=== PATIENT | male | born 1950 | race Caucasian/White ===

== ENCOUNTER → 2019-05-08 | Outpatient (CLI) | payer MEDICARE ==
--- NOTE | 2019-05-09 16:41 | MR ---
EXAMINATION TYPE: MR abdomen wo con DATE OF EXAM: 05/08/2019 COMPARISON: HISTORY: other intra-abdominal and pelvic swelling, Abn LSPine MRI suggested adrenal study Standard multiplanar, multisequence MRI departmental protocol Multiplanar, multisequence images of the abdomen were acquired. FINDINGS: Liver and spleen appear normal. Bile ducts are not dilated. There is normal size gallbladde r. Pancreas has normal size and contour. Pancreatic duct is not dilated. There is no sign of pleural effusion. There is no ascites. Stomach appears normal. There is no sign of retroperitoneal adenopathy . Kidneys have normal size and contour. There is no hydronephrosis. There is no evidence of an adrenal mass. There is large left adrenal gland without a discrete mass seen. The out of phase images show de creased signal in the left adrenal gland suggestive of significant fat component. This suggests benig n etiology. IMPRESSION: Negative MR scan of the abdomen. No suspicious adrenal mass seen. Bulky left adrenal gland could rela te to a myelolipoma.
== END | disposition home or self-care (01) ==
LOC: RADMRIMAIN 18:29
PROVIDERS: ATTEND Internal Medicine
DX: R19.09 Other intra-abdominal and pelvic swelling, mass and lump (principal)
CPT/HCPCS: 74181

== ENCOUNTER 2019-12-27 16:49 | Observation (INO) | payer MEDICARE ==
[2019-12-27] MEDS ORDERED: METOCLOPRAMIDE 5 MG/ML 2 ML VIAL IVP STA ×2 (17:13→19:01)
[2019-12-27] MEDS ORDERED: diphenhydrAMINE 50 MG/ML 1 ML VIAL IVP STA (17:13)
[2019-12-27 17:19] LABS: Basophils # (A) 0.1 k/uL (0-0.2); Basophils % (A) 0 %; Eosinophils # (A) 0.2 k/uL (0-0.7); Eosinophils % (A) 1 %; HCT 46.4 % (39.0-53.0); Lymphocytes # (A) 2.7 k/uL (1.0-4.8); Lymphocytes % (A) 18 %; MCH 29.8 pg (25.0-35.0); MCHC 32.3 g/dL (31.0-37.0); MCV 92.4 fL (80.0-100.0); Mean Platelet Volume 8.4; Monocytes # (A) 0.6 k/uL (0-1.0); Monocytes % (A) 4 %; Neutrophils # (A) 11.1 k/uL (1.3-7.7); Neutrophils % (A) 75 %; Platelet Count 203 k/uL (150-450); RBC 5.02 m/uL (4.30-5.90); RDW 13.4 % (11.5-15.5); WBC 14.8 k/uL (3.8-10.6)
--- NOTE | 2019-12-27 17:23 | ED ---
General Adult HPI - General Chief complaint: Chest Pain Stated complaint: Chest Pain Source: patient, family, EMS Mode of arrival: EMS Limitations: no limitations - History of Present Illness Initial comments: The patient is a 69-year-old male past medical history of coronary artery disease, asthma, COPD, diabetes who presents emergency department with reported epigastric abdominal pain, nausea and vomiting. The patient was working in the backyard making a [employer] when he states that he had some nausea and vomiting. Denies hematemesis. He then had sudden onset of left upper quadrant abdominal pain and epigastric pain. Patient became extremely diaphoretic. EMS was christiano led. They did give him 2 nitro and some Zofran. They're concerned about his EKG because it did show some J point elevation. Yesika Mahoney at bedside and states that the patient has had issues previously with chronic abdominal pain. He has stents in his heart which were placed by Dr. Allen. States he saw him last month and was doing well from a cardiac standpoint. He denies any fevers or chills. No ripping or tearing sensation to his back. Denies syncope. No numbness, tingling or weakness into his legs. There are no other alleviating, precipitating or modifying factors - Related Data Home Medications Medication Instructions Recorded Confirmed Aspirin EC [Ecotrin] 81 mg PO HS 06/07/14 04/03/16 Escitalopram [Lexapro] 10 mg PO BID 06/07/14 04/03/16 Ibuprofen [Motrin] 800 mg PO Q8HR PRN 06/07/14 04/03/16 Omeprazole [PriLOSEC] 20 mg PO BID 06/07/14 04/03/16 Rosuvastatin Calcium [Crestor] 40 mg PO HS 06/07/14 04/03/16 Temazepam [Restoril] 15 mg PO HS 06/07/14 04/03/16 metFORMIN HCL 1,000 mg PO BID 06/07/14 04/03/16 Albuterol Sulfate [Proair Hfa] 1 - 2 puff INHALATION DIRECTED 04/02/16 04/03/16 PRN Lisinopril [Zestril] 10 mg PO HS 04/02/16 04/03/16 Allergies Allergy/AdvReac Type Severity Reaction Status Date / Time Penicillins Allergy Unknown Unknown Verified 12/27/19 16:58 Childhood Review of Systems ROS Statement: Those systems with pertinent positive or pertinent negative responses have been documented in the HPI. ROS Other: All systems not noted in ROS Statement are negative. Past Medical History Past Medical History: Asthma, Coronary Artery Disease (CAD), COPD, Diabetes Mellitus, GERD/Reflux, Hyperlipidemia, Hypertension, Osteoarthritis (OA) Additional Past Medical History / Comment(s): hiatal hernia, History of Any Multi-Drug Resistant Organisms: None Reported Past Surgical History: Bowel Resection, Heart Catheterization With Stent, Orthopedic Surgery Additional Past Surgical History / Comment(s): COLON RESECTION FOR FLAT POLYPS. 2 cardiac stents, cysts removed from left arm and chest, arthroscopy left knee Past Anesthesia/Blood Transfusion Reactions: No Reported Reaction Date of Last Stent Placement:: 2003 Past Psychological History: No Psychological Hx Reported Smoking Status: Former smoker Past Alcohol Use History: None Reported Past Drug Use History: Marijuana - Past Family History Father Family Medical History: Cancer General Exam Limitations: no limitations Course Vital Signs 12/27/19 12/27/19 12/27/19 17:11 17:13 17:49 Temperature 98.1 F Pulse Rate 78 74 77 Respiratory 18 18 18 Rate Blood Pressure 130/80 130/90 134/86 O2 Sat by Pulse 100 100 100 Oximetry EKG Findings - EKG Comments: EKG Findings:: EKG demonstrates normal sinus rhythm with a ventricular rate of 81. FL interval 136. QRS 76. QTC of 476. Patient has J-point elevation in leads 1, 2, 3, aVF as well as V2 through V6. No reciprocal changes. Repeat EKG performed at 1907 demonstrates normal sinus rhythm with a ventricular rate of 85. FL interval 136. QRS 78. QTC of 497. No acute ST segment elevations or depressions concerning for ischemic changes Medical Decision Making - Medical Decision Making Patient arrives and is diaphoretic. He is placed on continuous pulse ox and cardiac monitoring. He denies chest pain to me. 12-lead EKG was performed. His admit to some back pain which is positional. Patient continues to feel nauseated and therefore he is given 10 mg of Reglan and 25 mg of Benadryl. I wrote her a studies were conducted. White blood cell count is 14.8. D-dimer 0.84. I did reevaluate the patient. He is now complaining of back spasms and therefore is requesting a muscle relaxer. I did give him 5 mg of Valium. Patient sent over for a CT of his chest and and pelvis which demonstrates no acute findings. I did repeat an EKG which continues to demonstrate the same J- point elevation. I did discuss diagnosis, differential and treatment options. I do recommend hospital admission in order to trend the patient's troponins. Treat his pain and nausea. I called and discussed case with Dr. Barreto who agreed to admit the patient. Patient remained in stable condition awaiting a bed on the floor - Lab Data Result diagrams: 12/27/19 17:00 12/27/19 17:09 Lab Results 12/27/19 12/27/19 12/27/19 Range/Units 17:00 17:09 17:09 WBC 14.8 H (3.8-10.6) k/uL RBC 5.02 (4.30-5.90) m/uL Hgb 15.0 (13.0-17.5) gm/dL Hct 46.4 (39.0-53.0) % MCV 92.4 (80.0-100.0) fL MCH 29.8 (25.0-35.0) pg MCHC 32.3 (31.0-37.0) g/dL RDW 13.4 (11.5-15.5) % Plt Count 203 (150-450) k/uL Neutrophils % 75 % Lymphocytes % 18 % Monocytes % 4 % Eosinophils % 1 % Basophils % 0 % Neutrophils # 11.1 H (1.3-7.7) k/uL Lymphocytes # 2.7 (1.0-4.8) k/uL Monocytes # 0.6 (0-1.0) k/uL Eosinophils # 0.2 (0-0.7) k/uL Basophils # 0.1 (0-0.2) k/uL PT 10.2 (9.0-12.0) sec INR 1.0 (<1.2) APTT 20.0 L (22.0-30.0) sec D-Dimer 0.84 H (<0.60) mg/L FEU Sodium 142 (137-145) mmol/L Potassium 3.9 (3.5-5.1) mmol/L Chloride 109 H (98-107) mmol/L Carbon Dioxide 15 L (22-30) mmol/L Anion Gap 18 mmol/L BUN 18 (9-20) mg/dL Creatinine 0.97 (0.66-1.25) mg/dL Est GFR (CKD-EPI)AfAm >90 (>60 ml/min/1.73 sqM) Est GFR (CKD-EPI)NonAf 80 (>60 ml/min/1.73 sqM) Glucose 196 H (74-99) mg/dL Calcium 10.5 H (8.4-10.2) mg/dL Magnesium 2.0 (1.6-2.3) mg/dL Total Bilirubin 0.6 (0.2-1.3) mg/dL AST 36 (17-59) U/L ALT 30 (4-49) U/L Alkaline Phosphatase 79 (38-126) U/L Troponin I (0.000-0.034) ng/mL NT-Pro-B Natriuret Pep pg/mL Total Protein 6.5 (6.3-8.2) g/dL Albumin 4.4 (3.5-5.0) g/dL 12/27/19 12/27/19 Range/Units 17:09 17:09 WBC (3.8-10.6) k/uL RBC (4.30-5.90) m/uL Hgb (13.0-17.5) gm/dL Hct (39.0-53.0) % MCV (80.0-100.0) fL MCH (25.0-35.0) pg MCHC (31.0-37.0) g/dL RDW (11.5-15.5) % Plt Count (150-450) k/uL Neutrophils % % Lymphocytes % % Monocytes % % Eosinophils % % Basophils % % Neutrophils # (1.3-7.7) k/uL Lymphocytes # (1.0-4.8) k/uL Monocytes # (0-1.0) k/uL Eosinophils # (0-0.7) k/uL Basophils # (0-0.2) k/uL PT (9.0-12.0) sec INR (<1.2) APTT (22.0-30.0) sec D-Dimer (<0.60) mg/L FEU Sodium (137-145) mmol/L Potassium (3.5-5.1) mmol/L Chloride (98-107) mmol/L Carbon Dioxide (22-30) mmol/L Anion Gap mmol/L BUN (9-20) mg/dL Creatinine (0.66-1.25) mg/dL Est GFR (CKD-EPI)AfAm (>60 ml/min/1.73 sqM) Est GFR (CKD-EPI)NonAf (>60 ml/min/1.73 sqM) Glucose (74-99) mg/dL Calcium (8.4-10.2) mg/dL Magnesium (1.6-2.3) mg/dL Total Bilirubin (0.2-1.3) mg/dL AST (17-59) U/L ALT (4-49) U/L Alkaline Phosphatase (38-126) U/L Troponin I <0.012 (0.000-0.034) ng/mL NT-Pro-B Natriuret Pep 63 pg/mL Total Protein (6.3-8.2) g/dL Albumin (3.5-5.0) g/dL Disposition Clinical Impression: Epigastric pain, Nausea & vomiting Disposition: ADMITTED IP TO THIS [facility] Condition: Stable Is patient prescribed a controlled substance at d/c from ED?: No Decision to Admit Reason: Admit from EC Decision Date: 12/27/19 Decision Time: 19:06
[2019-12-27 17:29] LABS: ALT 30 U/L (4-49); AST 36 U/L (17-59); African American GFR (CKD) >90 (>60 ml/min/1.73 sqM); Albumin 4.4 g/dL (3.5-5.0); Alkaline Phosphatase 79 U/L (38-126); Anion Gap 18 mmol/L; Blood Urea Nitrogen 18 mg/dL (9-20); Calcium 10.5 mg/dL (8.4-10.2); Carbon Dioxide 15 mmol/L (22-30); Chloride 109 mmol/L (98-107); Glucose 196 mg/dL (74-99); Non-African American GFR(CKD) 80 (>60 ml/min/1.73 sqM); Potassium 3.9 mmol/L (3.5-5.1); Sodium 142 mmol/L (137-145); Total Bilirubin 0.6 mg/dL (0.2-1.3); Total Protein 6.5 g/dL (6.3-8.2)
[2019-12-27] MEDS ORDERED: DIAZEPAM 5 MG/ML 2 ML INJ IVP STA (17:37)
[2019-12-27 17:42] LABS: Prothrombin Time 10.2 sec (9.0-12.0)
--- NOTE | 2019-12-27 17:42 | XR ---
EXAMINATION TYPE: XR chest 2V DATE OF EXAM: 12/27/2019 COMPARISON: NONE HISTORY: Short of breath TECHNIQUE: 3 views FINDINGS: Heart and mediastinum are normal. Lungs are clear of infiltrate. There is no pleural effusi on. There are no hilar masses. Bony thorax is intact. IMPRESSION: No active cardiopulmonary disease. Normal heart.
[2019-12-27 17:54] LABS: D-Dimer 0.84 mg/L FEU (<0.60)
--- NOTE | 2019-12-27 18:44 | CT ---
EXAMINATION TYPE: CT abdomen pelvis w con DATE OF EXAM: 12/27/2019 COMPARISON: None HISTORY: nausea, vomiting, LUQ pain CT DLP: 815 mGycm Automated exposure control for dose reduction was used. CONTRAST: Performed with IV Contrast, patient injected with 100 mL of Isovue 370. Multiple axial sections were obtained from the diaphragm to the floor the pelvis with IV contrast. Lung bases are clear. There is no pleural effusion. Heart size is normal. Liver spleen stomach pancre as gallbladder appear normal. Bile ducts are not dilated. There are small calcified splenic granuloma ta. There is no adrenal mass. Kidneys show satisfactory contrast opacification. There is no hydronephrosi s. Ureters are not dilated. There is normal excretion on the delayed images. There is no retroperiton eal adenopathy. Bladder distends smoothly. There is no inguinal hernia. There is no free fluid in the pelvis. There is no mesenteric edema. There is no ascites or free air. There are surgical clips at the hepatic flexure of the colon. There is apparent right hemicolectomy. There is no sign of bowel obstruction. Lumbar vertebra have normal alignment. I see no focal bone destruction. There is posterior disc herni ation at L4-5 with some impingement on the spinal canal. The bony pelvis appears intact. IMPRESSION: Previous colon surgery. No sign of acute abdomen and pelvis.
--- NOTE | 2019-12-27 18:47 | CT ---
EXAMINATION TYPE: CT chest angio for PE DATE OF EXAM: 12/27/2019 COMPARISON: None HISTORY: chest pain, elevated d-dimer, SOB CT DLP: 320.2 mGycm Automated exposure control for dose reduction was used. CONTRAST: Performed with IV Contrast, patient injected with 100 mL of Isovue 370. Multiple axial sections were obtained from the thoracic inlet to the diaphragm with IV contrast. Ther e are 3-D post processed images. There is patchy bullous pulmonary emphysema. There is no mediastinal adenopathy. There are no hilar m asses. There is 4.2 cm aneurysm of the ascending aorta. There is no dissection. There are no hilar ma sses. Heart size is normal. There is very small pericardial effusion. The lungs are clear of infiltrate. There is no evidence of a pulmonary mass. There is normal contrast opacification of the pulmonary arteries. There are no filling defects. There is 10% depression of the superior endplate of T12 vertebra that is probably old. IMPRESSION: No evidence of pulmonary embolism. Pulmonary emphysema. Thoracic aortic mild aneurysm. T12 mild compression fracture probably old.
[2019-12-27] MEDS ORDERED: HYDROmorphone 1 MG/ML 1 ML SYRINGE IVP STA (19:01)
[2019-12-27] MEDS ORDERED: NALOXONE 0.4 MG/ML 1 ML VIAL IV PRN ×2 (19:06→19:11)
[2019-12-27] MEDS ORDERED: ONDANSETRON 4 MG/2 ML VIAL IVP PRN (19:11)
[2019-12-27] MEDS ORDERED: HYDROmorphone 1 MG/ML 1 ML SYRINGE IVP PRN (19:11)
[2019-12-27 21:16] LABS: Glucose,Whole Blood 178 mg/dL (75-99)
[2019-12-28] MEDS ORDERED: IBUPROFEN 800 MG TAB PO PRN (00:19)
[2019-12-28] MEDS ORDERED: ALBUTEROL NEBULIZED 2.5 MG/3 ML INHALATION PRN (00:19)
[2019-12-28] MEDS ORDERED: ASPIRIN 81 MG PO SCH (00:30)
[2019-12-28] MEDS ORDERED: LISINOPRIL 10 MG TAB PO SCH (00:30)
[2019-12-28] MEDS ORDERED: ATORVASTATIN 40 MG TAB PO SCH (00:30)
[2019-12-28] MEDS: ESCITALOPRAM 20 MG TAB PO SCH ×2 (01:19→08:11)
[2019-12-28 06:28] LABS: Glucose,Whole Blood 108 mg/dL (75-99)
[2019-12-28 06:39] LABS: Basophils % (A) 0 %; Eosinophils # (A) 0.1 k/uL (0-0.7); Eosinophils % (A) 1 %; HCT 42.6 % (39.0-53.0); HGB 14.2 gm/dL (13.0-17.5); Lymphocytes # (A) 1.8 k/uL (1.0-4.8); Lymphocytes % (A) 12 %; MCH 31.4 pg (25.0-35.0); MCHC 33.3 g/dL (31.0-37.0); MCV 94.1 fL (80.0-100.0); Mean Platelet Volume 8.6; Monocytes # (A) 0.8 k/uL (0-1.0); Monocytes % (A) 5 %; Neutrophils # (A) 11.6 k/uL (1.3-7.7); Neutrophils % (A) 81 %; Platelet Count 197 k/uL (150-450); RBC 4.53 m/uL (4.30-5.90); RDW 13.5 % (11.5-15.5); WBC 14.4 k/uL (3.8-10.6)
[2019-12-28 06:51] LABS: African American GFR (CKD) >90 (>60 ml/min/1.73 sqM); Anion Gap 4 mmol/L; Blood Urea Nitrogen 19 mg/dL (9-20); Carbon Dioxide 24 mmol/L (22-30); Chloride 108 mmol/L (98-107); Glucose 108 mg/dL (74-99); Non-African American GFR(CKD) >90 (>60 ml/min/1.73 sqM); Potassium 4.2 mmol/L (3.5-5.1); Sodium 136 mmol/L (137-145)
[2019-12-28] MEDS: INSULIN ASPART (NovoLOG) 100 UNIT/ML VIAL SQ SCH ×3 (08:05→18:14)
[2019-12-28] MEDS ORDERED: CHOLECALCIFEROL 1,000 UNIT TAB PO SCH (09:00)
[2019-12-28] MEDS ORDERED: MULTIVITAMINS, THERA 1 EACH TAB PO SCH (09:00)
[2019-12-28] MEDS ORDERED: PANTOPRAZOLE 40 MG TABLET PO STA (14:12)
[2019-12-28] MEDS ORDERED: SODIUM CHLORIDE 0.9% 1,000 ML IV SCH (14:15)
--- NOTE | 2019-12-28 15:19 | CONS ---
CONSULTATION Mr. Chen is a 69-year-old male who is followed by Dr. Allen for his cardiac care, who presented with nausea and vomiting and abdominal discomfort. He was working outdoor for a long time, has been receiving quite a bit of pop and became nauseated and vomited with abdominal discomfort, epigastric in location, came into the emergency room. At the time of my evaluation, he is feeling quite well. He is reasonably active physically. He has mild dyspnea, chronic mild dyspnea on exertion. He has history of chronic obstructive heart disease. He has no chest discomfort. No palpitation. No dizziness. No syncope. No PND, orthopnea, or peripheral edema. He has underwent a stenting in 2003 with receiving 2 stent were but no evidence of myocardial infarction. According to him, had underwent repeat cardiac catheterization afterward that was unremarkable and has underwent a stress test in June of this year before preop evaluation that was unremarkable. He was seen by his osteopathic physician in November and once stable. 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 His coronary risk factors are remarkable for hypertension hyperlipidemia and diabetes. He stopped smoking many years ago. He has. MEDICATION: At home include albuterol, vitamin D, Crestor 40 mg daily, metformin 500 mg daily, lisinopril 10 mg daily, Lexapro and aspirin. REVIEW OF SYSTEMS: RESPIRATORY SYSTEM: He has history of asthma and COPD. No recent cough or fever. GI SYSTEM: He had nausea and vomiting. No GI bleeding. SYSTEM: No dysuria or hematuria. NERVOUS SYSTEM: No stroke or seizure. PHYSICAL EXAMINATION: He is a 69-year-old male, alert, in no apparent distress. Blood pressure running in the 110s with a heart rate in the 70s. HEAD: Normocephalic. EYES: Sclerae nonicteric. NECK: Good upstroke, no venous distention. LUNGS: Clear to auscultation. HEART: Regular rate and rhythm. S1, S2. No S3. No S4. No murmur or rub. ABDOMEN: Soft, nontender, positive bowel sounds. No organomegaly. EXTREMITIES: No edema, intact pulses. LAB DATA: Revealed BUN and creatinine 19 and 0.77, potassium 4.2, hemoglobin of 14.2, white blood cell 14.4, troponin less than 0.012 and NT proBNP of 63. EKG revealed a sinus mechanism, normal axis and intervals with early repolarization changes. Chest CT angiogram showed no evidence of pulmonary embolism with mild aneurysmal dilatation of the ascending aorta measuring at 4.2 cm. Chest x-ray shows no acute infiltrate. IMPRESSION: 1. Nausea, vomiting and abdominal discomfort, probable gastritis. No evidence of acute abdomen. 2. History of coronary artery disease, stable. No evidence for acute coronary syndrome. 3. History of hypertension. 4. Hyperlipidemia. 5. Diabetes mellitus. 6. Remote history of smoking. RECOMMENDATION: From the cardiac standpoint, I will obtain echocardiogram. The patient should be able to be discharged home and follow up as an outpatient with his primary osteopathic physician. Thank you for this consult. DAVI / AARONN: [id number] /
[2019-12-28 16:31] VITALS: BP 116/65; PULSE 63; RESP 18; TEMP 98.5
--- NOTE | 2019-12-28 16:33 | P.HPIM ---
History of Present Illness H&P Date: 12/28/19 Chief Complaint: Nausea vomiting History of presenting complaint: This is a very pleasant 69-year-old patient of Gladis Wong. Chronic stable medical conditions include asthma, coronary artery disease, COPD, diabetes, hyperlipidemia, hypertension, osteoarthritis, chlamydia pulmonary hypertension. Patient's had a prior stent. Patient is quite troubled by his reflux symptoms. Yesterday after breakfast he was working outside in the yard for several hours. Patient did drink several diet Cokes. He developed burning sensation in the epigastric lower chest area. Also developed nausea vomiting. There is no precordial pain. Patient was diaphoretic. Temperature outside was close to 90. He does follow with a ship harbor pilot from outside the area. No dizziness no lightheadedness, did feel tired. Review of systems: GEN.: Tired EYES: None HEENT: None NECK: None RESPIRATORY: None CARDIOVASCULAR: As above GASTROINTESTINAL: As above GENITOURINARY: None MUSCULOSKELETAL: None LYMPHATICS: None HEMATOLOGICAL: None PSYCHIATRY: None NEUROLOGICAL: None Past medical history to include: COPD, coronary artery disease with stent, diabetes, GERD, hypertension, hyperlipidemia, osteoarthritis, hiatal hernia, pulmonary hypertension Social history: Smoked for over 30 years about a pack a day stopped in 1996. . 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 Physical examination: VITAL SIGNS: 98.4, 79, 16, 105/64, 97% on room air GENERAL: BMI 25.7, laying in bed slightly tired. EYES: Pupils equal. Conjunctiva normal. HEENT: External appearance of nose and ears normal, oral cavity grossly normal. NECK: JVD not raised; masses not palpable. HEART: First and second heart sounds are normal; no edema. LUNGS:[ Respiratory rate normal; slightly decreased breath sounds. ABDOMEN: Soft, nontender, liver spleen not palpable, no masses palpable. PSYCH: Alert and oriented x3; mood and affect normal. NEUROLOGICAL: Cranial nerves grossly intact; no facial asymmetry, power and sensation grossly intact. LYMPHATICS: No lymph nodes palpable in the axilla and neck INVESTIGATIONS, reviewed in the clinical context: White count 14.4 hemoglobin 14.2 platelets 197 potassium 4.2 creatinine 0.77 Troponin I 3 negative EKG tracing personally reviewed by me-normal sinus rhythm Computed tomography scan of the chest-emphysema, no PE. 10% T12 superior plate compression 4.2 cm aneurysm of ascending aorta. Chest x-ray film personally reviewed by me-lung sofia clear Assessment: -This is a patient is being troubled with reflux symptoms yesterday was walking out of the sun for several hours. Patient drank a lot of Diet Coke. Also was having orange juice before that. Had a burning sensation in the epigastric area. Symptoms are very atypical for cardiac. Patient is due for EGD. -Coronary artery disease per history of stent. -COPD in an ex-smoker -Diabetes mellitus type 2 -Hyperlipidemia -Essential hypertension -Primary osteoarthritis -Hiatal hernia -Secondary probably hypertension - Plan: Cardiology was consulted to rule out a cardiac cause. EKG was unremarkable. Troponins were negative. Home medications resumed. Patient be given IV fluids. Also had PPI and Tums. Patient does take Motrin that was discontinued. Care was discussed with the patient. Past Medical History Past Medical History: Asthma, Coronary Artery Disease (CAD), COPD, Diabetes Mellitus, GERD/Reflux, Hyperlipidemia, Hypertension, Osteoarthritis (OA) Additional Past Medical History / Comment(s): hiatal hernia, pulmonary HTN History of Any Multi-Drug Resistant Organisms: None Reported Past Surgical History: Bowel Resection, Heart Catheterization With Stent, Orthopedic Surgery Additional Past Surgical History / Comment(s): COLON RESECTION FOR FLAT POLYPS. 2 cardiac stents, cysts removed from left arm and chest, arthroscopy left knee Past Anesthesia/Blood Transfusion Reactions: No Reported Reaction Date of Last Stent Placement:: 2003 Past Psychological History: No Psychological Hx Reported Smoking Status: Former smoker Past Alcohol Use History: None Reported Additional Past Alcohol Use History / Comment(s): quit smoking 1996, smoked for 30 yrs-1 PPD Past Drug Use History: Marijuana - Past Family History Father Family Medical History: Cancer Medications and Allergies Home Medications Medication Instructions Recorded Confirmed Type Aspirin EC [Ecotrin Low Dose] 81 mg PO HS 06/07/14 12/27/19 History Rosuvastatin Calcium [Crestor] 40 mg PO HS 06/07/14 12/27/19 History metFORMIN HCL 500 mg PO DAILY 06/07/14 12/27/19 History Albuterol Sulfate [Proair Hfa] 1 - 2 puff INHALATION RT-Q4H PRN 04/02/16 12/28/19 History Lisinopril [Zestril] 10 mg PO HS 04/02/16 12/27/19 History Cholecalciferol [Vitamin D3 (25 1,000 unit PO DAILY 12/27/19 12/27/19 History Mcg = 1000 Iu)] Escitalopram [Lexapro] 10 mg PO BID 12/27/19 12/27/19 History Multivitamins, Thera [Multivitamin 1 tab PO DAILY 12/27/19 12/27/19 History (formulary)] Omeprazole [PriLOSEC] 20 mg PO AC-BID #60 cap 12/28/19 Rx Allergies Allergy/AdvReac Type Severity Reaction Status Date / Time Penicillins Allergy Unknown Unknown Verified 12/27/19 19:51 Childhood Physical Exam Vitals: Vital Signs Temp Pulse Pulse Resp BP BP Pulse Ox 12/28/19 08:02 98.4 F 79 16 105/64 97 12/28/19 08:00 79 16 12/28/19 03:54 77 14 12/28/19 03:51 98.3 F 77 14 115/72 99 12/28/19 00:00 97.9 F 79 16 97/73 100 12/27/19 23:00 16 12/27/19 20:11 97.4 F L 12/27/19 19:32 77 19 147/91 99 12/27/19 17:49 77 18 134/86 100 12/27/19 17:13 74 18 130/90 100 12/27/19 17:11 98.1 F 78 18 130/80 100 Intake and Output 12/27/19 12/28/19 12/28/19 22:59 06:59 14:59 Other: Voiding Method Toilet Toilet Urinal Urinal # Voids 1 Weight 76.657 kg Results CBC & Chem 7: 12/28/19 06:19 12/28/19 06:19 Labs: Abnormal Lab Results - Last 24 Hours (Table) 12/27/19 12/27/19 12/27/19 Range/Units 17:00 17:09 17:09 WBC 14.8 H (3.8-10.6) k/uL Neutrophils # 11.1 H (1.3-7.7) k/uL APTT 20.0 L (22.0-30.0) sec D-Dimer 0.84 H (<0.60) mg/L FEU Sodium (137-145) mmol/L Chloride 109 H (98-107) mmol/L Carbon Dioxide 15 L (22-30) mmol/L Glucose 196 H (74-99) mg/dL POC Glucose (mg/dL) (75-99) mg/dL Calcium 10.5 H (8.4-10.2) mg/dL 12/27/19 12/28/19 12/28/19 Range/Units 21:05 06:19 06:19 WBC 14.4 H (3.8-10.6) k/uL Neutrophils # 11.6 H (1.3-7.7) k/uL APTT (22.0-30.0) sec D-Dimer (<0.60) mg/L FEU Sodium 136 L (137-145) mmol/L Chloride 108 H (98-107) mmol/L Carbon Dioxide (22-30) mmol/L Glucose 108 H (74-99) mg/dL POC Glucose (mg/dL) 178 H (75-99) mg/dL Calcium (8.4-10.2) mg/dL 12/28/19 Range/Units 06:26 WBC (3.8-10.6) k/uL Neutrophils # (1.3-7.7) k/uL APTT (22.0-30.0) sec D-Dimer (<0.60) mg/L FEU Sodium (137-145) mmol/L Chloride (98-107) mmol/L Carbon Dioxide (22-30) mmol/L Glucose (74-99) mg/dL POC Glucose (mg/dL) 108 H (75-99) mg/dL Calcium (8.4-10.2) mg/dL Thrombosis Risk Factor Assmnt - Choose All That Apply Other Risk Factors: Yes Each Risk Factor Represents 2 Points: Age 61-74 years Other congenital or acquired thrombophilia - If yes, enter type in comment: No Thrombosis Risk Factor Assessment Total Risk Factor Score: 2 Thrombosis Risk Factor Assessment Level: Low Risk
[2019-12-28 16:42] LABS: Glucose,Whole Blood 94 mg/dL (75-99)
--- NOTE | 2019-12-29 23:07 | P.DS ---
Providers Date of admission: 12/27/19 19:09 Expected date of discharge: 12/28/19 Attending physician: Markel Barreto Consults: 12/27/19 19:08 Consult Physician Urgent Consulting Provider: [facility] Consult Reason/Comments: epigastric pain, hx ascad Do you want consulting provider notified?: Yes Primary care physician: Ewa Pritchardroy [facility] Course: Chief Complaint: Nausea vomiting History of presenting complaint: This is a very pleasant 69-year-old patient of Gladis Wong. Chronic stable medical conditions include asthma, coronary artery disease, COPD, diabetes, hyperlipidemia, hypertension, osteoarthritis, chlamydia pulmonary hypertension. Patient's had a prior stent. Patient is quite troubled by his reflux symptoms. Yesterday after breakfast he was working outside in the yard for several hours. Patient did drink several diet Cokes. He developed burning sensation in the epigastric lower chest area. Also developed nausea vomiting. There is no precordial pain. Patient was diaphoretic. Temperature outside was close to 90. He does follow with a time signal wirer from outside the area. No dizziness no lightheadedness, did feel tired. Admitted with severe reflux symptoms with nausea vomiting. Given PPI times. Doing better. Seen by Dr. Jiménez from cardiology. Cleared. Patient told to get a EGD as an outpatient.. Will be sent home on PPIs. Diet also discussed at length. Consultation: Dr. Jiménez from cardiology Physical examination: VITAL SIGNS: 98.5, 63, 18, 11 6/65, 97% room air GENERAL: BMI 25.7, laying in bed slightly tired. EYES: Pupils equal. Conjunctiva normal. HEENT: External appearance of nose and ears normal, oral cavity grossly normal. NECK: JVD not raised; masses not palpable. HEART: First and second heart sounds are normal; no edema. LUNGS:[ Respiratory rate normal; slightly decreased breath sounds. ABDOMEN: Soft, nontender, liver spleen not palpable, no masses palpable. PSYCH: Alert and oriented x3; mood and affect normal. INVESTIGATIONS, reviewed in the clinical context: White count 14.4 hemoglobin 14.2 platelets 197 potassium 4.2 creatinine 0.77 Troponin I 3 negative EKG tracing personally reviewed by in-normal sinus rhythm Computed tomography scan of the chest-emphysema, no PE. 10% T12 superior plate compression 4.2 cm aneurysm of ascending aorta. Chest x-ray film personally reviewed by me-lung sofia clear Assessment: -Symptoms from severe reflux esophagitis causing some chest pain -Coronary artery disease per history of stent. -COPD in an ex-smoker -Diabetes mellitus type 2 -Hyperlipidemia -Essential hypertension -Primary osteoarthritis -Hiatal hernia -Secondary pulmonary hypertension - Disposition: Home Patient Condition at Discharge: Stable Plan - Discharge Summary New Discharge Prescriptions: New Omeprazole [PriLOSEC] 20 mg PO AC-BID #60 cap Continue metFORMIN HCL 500 mg PO DAILY Rosuvastatin Calcium [Crestor] 40 mg PO HS Aspirin EC [Ecotrin Low Dose] 81 mg PO HS Lisinopril [Zestril] 10 mg PO HS Albuterol Sulfate [Proair Hfa] 1 - 2 puff INHALATION RT-Q4H PRN PRN Reason: Shortness Of Breath Cholecalciferol [Vitamin D3 (25 Mcg = 1000 Iu)] 1,000 unit PO DAILY Multivitamins, Thera [Multivitamin (formulary)] 1 tab PO DAILY Escitalopram [Lexapro] 10 mg PO BID Discontinued Ibuprofen [Motrin] 800 mg PO Q8HR PRN PRN Reason: Pain Discharge Medication List Aspirin EC [Ecotrin Low Dose] 81 mg PO HS 06/07/14 [History] Rosuvastatin Calcium [Crestor] 40 mg PO HS 06/07/14 [History] metFORMIN HCL 500 mg PO DAILY 06/07/14 [History] Albuterol Sulfate [Proair Hfa] 1 - 2 puff INHALATION RT-Q4H PRN 04/02/16 [History] Lisinopril [Zestril] 10 mg PO HS 04/02/16 [History] Cholecalciferol [Vitamin D3 (25 Mcg = 1000 Iu)] 1,000 unit PO DAILY 12/27/19 [History] Escitalopram [Lexapro] 10 mg PO BID 12/27/19 [History] Multivitamins, Thera [Multivitamin (formulary)] 1 tab PO DAILY 12/27/19 [History] Omeprazole [PriLOSEC] 20 mg PO AC-BID #60 cap 12/28/19 [Rx] Follow up Appointment(s)/Referral(s): Fani Mathias MD [STAFF PHYSICIAN] - 2 Weeks (egd ) Ewa Alexander MD [Primary Care Provider] - 1-2 days Activity/Diet/Wound Care/Special Instructions: please follow up with your time signal wirer within a couple weeks. Discharge Disposition: HOME SELF-CARE
--- NOTE | 2019-12-30 16:01 | ECHOF ---
Referral Reason:cad MEASUREMENTS -------- HEIGHT: 172.7 cm WEIGHT: 76.7 kg BP: 105/64 RVIDd: 3.0 cm (< 3.3) IVSd: 1.3 cm (0.6 - 1.1) LVIDd: 3.2 cm (3.9 - 5.3) LVPWd: 1.3 cm (0.6 - 1.1) IVSs: 1.8 cm LVIDs: 2.7 cm LVPWs: 1.5 cm LA Diam: 3.8 cm (2.7 - 3.8) Ao Diam: 4.1 cm (2.0 - 3.7) AV Cusp: 2.2 cm (1.5 - 2.6) MV EXCURSION: 14.013 mm (> 18.000) MV EF SLOPE: 67 mm/s (70 - 150) EPSS: 0.6 cm MV E Cedric: 0.87 m/s MV DecT: 187 ms MV A Cedric: 0.94 m/s MV E/A Ratio: 0.93 RAP: 5.00 mmHg RVSP: 19.65 mmHg FINDINGS -------- Sinus rhythm. This was a technically adequate study. The left ventricular size is normal. There is mild concentric left ventricular hypertrophy. Overa ll left ventricular systolic function is normal with, an EF between 55 - 60 %. The right ventricle is normal in size. The left atrial size is normal. The right atrial size is normal. Interatrial and interventricular septum intact. The aortic valve is trileaflet, and appears structurally normal. No aortic stenosis or regurgitation. The mitral valve is normal. There is trace to mild mitral regurgitation. The tricuspid valve appears structurally normal. Mild tricuspid regurgitation present. Right vent ricular systolic pressure is normal at < 35 mmHg. There is no pulmonic regurgitation present. The aortic root is mildy dilated. Normal inferior vena cava with normal inspiratory collapse consistent with estimated right atrial pre ssure of 5 mmHg. There is no pericardial effusion. CONCLUSIONS -------- 1. There is mild concentric left ventricular hypertrophy. 2. Overall left ventricular systolic function is normal with, an EF between 55 - 60 %. 3. The left atrial size is normal. 4. The aortic valve is trileaflet, and appears structurally normal. No aortic stenosis or regurgitati on. 5. There is trace to mild mitral regurgitation. 6. Mild tricuspid regurgitation present. 7. The aortic root is mildy dilated. 8. There is no pericardial effusion. STATE AUDITOR: Desirae Parker RDCS
== END 2019-12-28 21:09 | disposition home or self-care (01) ==
LOC: EC 16:49 → 1SOBS 19:09
PROVIDERS: ADMIT Hospitalist; ATTEND Hospitalist
DX: K21.0 Gastro-esophageal reflux disease with esophagitis (principal); I25.10 Atherosclerotic heart disease of native coronary artery without angina pectoris; R61 Generalized hyperhidrosis; M54.9 Dorsalgia, unspecified; M62.830 Muscle spasm of back; J44.9 Chronic obstructive pulmonary disease, unspecified; I10 Essential (primary) hypertension; E11.9 Type 2 diabetes mellitus without complications; G89.29 Other chronic pain; E78.5 Hyperlipidemia, unspecified; I27.29 Other secondary pulmonary hypertension; M19.91 Primary osteoarthritis, unspecified site; K44.9 Diaphragmatic hernia without obstruction or gangrene; Z98.0 Intestinal bypass and anastomosis status; Z20.828 Contact with and (suspected) exposure to other viral communicable diseases; Z95.5 Presence of coronary angioplasty implant and graft; Z87.891 Personal history of nicotine dependence; Z79.82 Long term (current) use of aspirin; Z79.899 Other long term (current) drug therapy; Z79.1 Long term (current) use of non-steroidal anti-inflammatories (NSAID); Z79.84 Long term (current) use of oral hypoglycemic drugs; Z88.0 Allergy status to penicillin; Z80.9 Family history of malignant neoplasm, unspecified
CPT/HCPCS: 93005 ×3; 96376; 96374; 96375; 99285; 36415; 93306; 85379; 83880; 80053; 80048; 83735; 84484; 85025 ×2; 85610; 85730; 71046; 71275; 74177; G0378 ×2; U0003; J1200; J2765; J3360; J1170; Q9967

== ENCOUNTER 2021-09-13 06:56 | Day surgery (SDC) | payer MEDICARE ==
[2021-09-11 11:54] VITALS: BMI 25.8
[2021-09-13 07:28] VITALS: TEMP 98.3
[2021-09-13 07:30] LABS: Glucose,Whole Blood 104 mg/dL (75-99)
[2021-09-13] MEDS: LACTATED RINGERS 1,000 ML IV SCH ×2 (07:30→07:43)
[2021-09-13] MEDS ORDERED: PROPOFOL 10 MG/ML 20 ML VIAL IV ONE (07:45)
--- NOTE | 2021-09-13 08:16 | P.PCN ---
Date of Procedure: 09/13/21 Procedure(s) Performed: BRIEF HISTORY: Patient is a 70-year-old pleasant white male scheduled for an elective colonoscopy as a part of the prior history of colon cancer diagnosed several years ago. His last colonoscopy was 5 years ago. PROCEDURE PERFORMED: Colonoscopy. PREOPERATIVE DIAGNOSIS: History of colon cancer ago several years ago status post right hemicolectomy. IV sedation per Anesthesia. PROCEDURE: After informed consent was obtained, the patient, was brought into the endoscopy unit. IV sedation was administered by Anesthesia under continuous monitoring. Digital rectal examination was normal. Initially the Olympus CF-160 flexible video colonoscope was then inserted in the rectum, gradually advanced into the right colon without any difficulty. The anastomosis was visualized and appeared normal. Mucosa of the, ascending colon, transverse colon, descending colon, sigmoid colon, and rectum appeared normal. Scattered sigmoid diverticulosis. Retroflexion was performed in the rectum and no lesions were seen. The patient tolerated the procedure well. IMPRESSION: Normal-appearing colon from rectum to right colon with normal anastomosis. Scattered sigmoid diverticulosis RECOMMENDATIONS: Findings of this examination were discussed with the patient as well as his family. He was advised to have a repeat surveillance colonoscopy in 5 years from her prior history of colon cancer..
[2021-09-13 08:35] VITALS: BP 114/76; PULSE 83; RESP 16
== END 2021-09-13 08:56 | disposition home or self-care (01) ==
LOC: ORWHC2ENDO 06:56
PROVIDERS: ATTEND Internal Medicine Gastroenterology
DX: Z12.11 Encounter for screening for malignant neoplasm of colon (principal); K57.30 Diverticulosis of large intestine without perforation or abscess without bleeding; Z85.038 Personal history of other malignant neoplasm of large intestine; Z90.49 Acquired absence of other specified parts of digestive tract; Z98.0 Intestinal bypass and anastomosis status; I25.10 Atherosclerotic heart disease of native coronary artery without angina pectoris; I10 Essential (primary) hypertension; E78.5 Hyperlipidemia, unspecified; J44.9 Chronic obstructive pulmonary disease, unspecified; I27.20 Pulmonary hypertension, unspecified; E11.9 Type 2 diabetes mellitus without complications; M19.90 Unspecified osteoarthritis, unspecified site; K21.9 Gastro-esophageal reflux disease without esophagitis; Z79.899 Other long term (current) drug therapy; Z79.84 Long term (current) use of oral hypoglycemic drugs; Z79.82 Long term (current) use of aspirin; Z97.2 Presence of dental prosthetic device (complete) (partial)
CPT/HCPCS: J2704; G0105

== ENCOUNTER → 2022-09-20 | Outpatient (CLI) | payer MEDICARE ==
[2022-09-20 14:14] VITALS: BP 123/81; PULSE 75; RESP 18; TEMP 98
--- NOTE | 2022-09-20 14:47 | P.PAINPG ---
PQRS Measure Charge Sheet Comment: A 71 yr old male with a history of severe and chronic LBP secondary to lumbar DDD and spondylosis with facet arthropathy without myelopathy presents today for LBP evaluation. Pain level is provoked at 6 /10 in intensity, constant, localized in the lumbar spine, sharp in character w shooting towards the LLE. Pain is provoked by standing, walking for periods of 10 min or more. Pain is alleviated with PT x 5 wks which is completed in Aug 2022, medications, THC products, heat, PT guided home exercise regimen, repositioning and rest. Patient is currently on Ibu Patient denies any side effects of the medication(s), denies excessive drowsiness or sleepiness, denies suicidal ideation and reports that the current pain medication is helping to control the pain and improve activities of daily living. Patient denies any motor or sensory deficits. Patient denies any fever or night sweats, denies any change in the bowel movements or urination. Physical Examination: -Constitutional: Cooperative. Not in acute distress . - Neurologic: Cranial nerve II to XII intact. No focal neurological deficits. - Psychatric: Alert & oriented x 3. Matching mood & appropriate affect. Judgment and insight intact. - Musculoskeletal: Cervical spine: Muscle bulk/ tone/ strength in the bilateral upper extremities normal Vertebral body tenderness to palpation over Spurling test positive Distraction test positive Facet loading test positive TTP Thoracic spine Muscle bulk / tone/ strength in the bilateral paraspinal muscles normal Vertebral body tender to palpation over Facet loading test positive TTP Lumbar spine: Motor bulk/ tone/ strength lower extremities , thigh and legs : 5/5 Deep tendon reflexes : Normal Knee Jerk. Normal Ankle Jerk . Vertebral body tenderness to palpation over Lumbar Facet Loading Test positive TTP over BL L4-L5, L5-S1 facets Straight Leg Raise: positive at 30 degrees right side/ left side Gaenslen's Test positive Sacral spine : Severe tenderness over the Sacroiliac joint: right side / left side Range of motion: Flexion of the lumbar spine <60 degrees Range of motion: Extension of the lumbar spine <20 degrees Gaenslen's Test positive right side / left side Alban test: positive right side / left side Thigh Thrust Test positive right side / left side Sacral Thrust Test positive right side / left side Assessment and plan: Chronic LBP secondary to lumbar DDD, spondylosis with facet arthropathy without myelopathy Recommendation of BL facet block of the medial branches L4-L5, L5-S1 #1. May need a series of injections, up until RFA, for optimal pain relief. Risks, benefits of procedure discussed and pt verbalized understanding. Admits to anticoagulant use or medical history of diabetes. Protocol for discontinuation/ continuation of medications [place] procedure discussed. All questions answered. I have spent less than 30 minutes on patient care today. Dr Fink was available by phone for the evaluation of this patient. The time was used to review the medical records including relevant urine studies and Prescription history (MAPs), review of the available imaging, evaluation and examination of the patient, coordination of care with the medical staff and if applicable referring physicians, as well as creation of the medical record PQRS Narrative: Smoking Status Former smoker Hx Alcohol Use (MH) No Home Medications: Ambulatory Orders Aspirin EC [Ecotrin Low Dose] 81 mg PO HS 06/07/14 Rosuvastatin Calcium [Crestor] 40 mg PO HS 06/07/14 metFORMIN HCL [Glucophage] 500 mg PO BID 06/07/14 Albuterol Sulfate [Proair Hfa] 1 - 2 puff INHALATION RT-Q4H PRN 04/02/16 lisinopriL [Zestril] 10 mg PO HS 04/02/16 Cholecalciferol [Vitamin D3 (25 Mcg = 1000 Iu)] 1,000 unit PO DAILY 12/27/19 Escitalopram [Lexapro] 10 mg PO BID 12/27/19 Multivitamins, Thera [Multivitamin (formulary)] 1 tab PO DAILY 12/27/19 Omeprazole [PriLOSEC] 20 mg PO AC-BID #60 cap 12/28/19 Fluticasone Propion/Salmeterol [Advair 250-50 Diskus] 1 inhalation PO BID 09/11/21 Controlled Substance Measures - Controlled Substance Measures Is patient prescribed a controlled substance at discharge?: No
== END ==
LOC: PNWHC3 13:08
PROVIDERS: ATTEND Specialist
DX: M51.36 Other intervertebral disc degeneration, lumbar region (principal); M47.816 Spondylosis without myelopathy or radiculopathy, lumbar region; G89.29 Other chronic pain; Z87.891 Personal history of nicotine dependence; Z79.82 Long term (current) use of aspirin; Z88.0 Allergy status to penicillin
CPT/HCPCS: 99211

== ENCOUNTER → 2022-11-22 | Outpatient (CLI) | payer MEDICARE ==
[2022-11-22 13:41] VITALS: BP 118/76; PULSE 63; RESP 18; TEMP 98
--- NOTE | 2022-11-22 14:27 | P.PAINPG ---
PQRS Measure Charge Sheet Comment: A 71 yr old male with a history of severe and chronic LBP secondary to lumbar DDD and spondylosis with facet arthropathy without myelopathy presents today for evaluation s/p BL MBB L3-L5 #1. Pt states he experienced 100 % pain relief x 2 wks s/p procedure. Pain level is provoked at 2 /10 in intensity, intermittent, localized in the lumbar spine, dull in character w/o shooting pain. Pain is provoked by lifting, walking/ standing for periods of 30 min or more. Pain is alleviated with injections. Interventional pain procedures completed include BL MBB L3-L5 x1 Patient denies any side effects of the medication(s), denies excessive drowsiness or sleepiness, denies suicidal ideation and reports that the current pain medication is helping to control the pain and improve activities of daily living. Patient denies any motor or sensory deficits. Patient denies any fever or night sweats, denies any change in the bowel movements or urination. Physical Examination: -Constitutional: Cooperative. Not in acute distress . - Neurologic: Cranial nerve II to XII intact. No focal neurological deficits. - Psychatric: Alert & oriented x 3. Matching mood & appropriate affect. Judgment and insight intact. - Musculoskeletal: Cervical spine: Muscle bulk/ tone/ strength in the bilateral upper extremities normal Vertebral body tenderness to palpation over Spurling test positive Distraction test positive Facet loading test positive TTP Thoracic spine Muscle bulk / tone/ strength in the bilateral paraspinal muscles normal Vertebral body tender to palpation over Facet loading test positive TTP Lumbar spine: Motor bulk/ tone/ strength lower extremities , thigh and legs : 5/5 Deep tendon reflexes : Normal Knee Jerk. Normal Ankle Jerk . Vertebral body tenderness to palpation over Aguirre Test positive Lumbar Facet Loading Test positive Straight Leg Raise: positive at 30 degrees right side/ left side Gaenslen's Test positive Sacral spine : Severe tenderness over the Sacroiliac joint: right side / left side Range of motion: Flexion of the lumbar spine <60 degrees Range of motion: Extension of the lumbar spine <20 degrees Gaenslen's Test positive right side / left side Alban test: positive right side / left side Thigh Thrust Test positive right side / left side Sacral Thrust Test positive right side / left side Assessment and plan: Chronic LBP secondary to lumbar DDD, spondylosis with facet arthropathy without myelopathy Will manage residual pain on his own and may return to clinic on an as needed basis. All questions answered. I have spent less than 30 minutes on patient care today. Dr Fink was available by phone for the evaluation of this patient. The time was used to review the medical records including relevant urine studies and Prescription history (MAPs), review of the available imaging, evaluation and examination of the patient, coordination of care with the medical staff and if applicable referring physicians, as well as creation of the medical record PQRS Narrative: Smoking Status Former smoker Hx Alcohol Use (MH) No Home Medications: Ambulatory Orders Aspirin EC [Ecotrin Low Dose] 81 mg PO HS 06/07/14 Rosuvastatin Calcium [Crestor] 40 mg PO HS 06/07/14 metFORMIN HCL [Glucophage] 500 mg PO BID 06/07/14 Albuterol Sulfate [Proair Hfa] 1 - 2 puff INHALATION RT-Q4H PRN 04/02/16 lisinopriL [Zestril] 10 mg PO HS 04/02/16 Cholecalciferol [Vitamin D3 (25 Mcg = 1000 Iu)] 1,000 unit PO DAILY 12/27/19 Escitalopram [Lexapro] 10 mg PO BID 12/27/19 Multivitamins, Thera [Multivitamin (formulary)] 1 tab PO DAILY 12/27/19 Omeprazole [PriLOSEC] 20 mg PO AC-BID #60 cap 12/28/19 Fluticasone Propion/Salmeterol [Advair 250-50 Diskus] 1 inhalation PO BID 09/11/21 Ibuprofen 600 mg PO DAILY 10/24/22 Controlled Substance Measures - Controlled Substance Measures Is patient prescribed a controlled substance at discharge?: No
== END ==
LOC: PNWHC3 12:59
PROVIDERS: ATTEND Specialist
DX: M43.16 Spondylolisthesis, lumbar region (principal); M51.36 Other intervertebral disc degeneration, lumbar region; M47.816 Spondylosis without myelopathy or radiculopathy, lumbar region; G89.29 Other chronic pain; Z88.0 Allergy status to penicillin; Z79.82 Long term (current) use of aspirin; Z87.891 Personal history of nicotine dependence
CPT/HCPCS: 99211

== ENCOUNTER → 2023-02-11 | Outpatient (CLI) | payer MEDICARE ==
[2023-02-11 14:18] VITALS: BP 104/71; PULSE 62; RESP 15; TEMP 98.2
--- NOTE | 2023-02-11 14:29 | P.PAINPG ---
PQRS Measure Charge Sheet Comment: A 72 yr old male with a history of severe and chronic LBP secondary to lumbar DDD and spondylosis with facet arthropathy without myelopathy presents today for evaluation. Pain level is provoked at 6/10 in intensity, intermittent, localized in the lumbar spine, dull in character w shooting pain to the butto cks. Pain is provoked by standing/ walking for periods of 15 min or more. Pain is relieved by PT x 6 wks which ended in Aug 2022, injections, lifting, walking/ standing for periods of 30 min or more. Oswestry axial pain score of 20. Interventional pain procedures completed include BL MBB L3-L5 x1 Patient denies any side effects of the medication(s), denies excessive drowsiness or sleepiness, denies suicidal ideation and reports that the current pain medication is helping to control the pain and improve activities of daily living. Patient denies any motor or sensory deficits. Patient denies any fever or night sweats, denies any change in the bowel movements or urination. Physical Examination: -Constitutional: Cooperative. Not in acute distress . - Neurologic: Cranial nerve II to XII intact. No focal neurological deficits. - Psychatric: Alert & oriented x 3. Matching mood & appropriate affect. Judgment and insight intact. - Musculoskeletal: Cervical spine: Muscle bulk/ tone/ strength in the bilateral upper extremities normal Vertebral body tenderness to palpation over Spurling test positive Distraction test positive Facet loading test positive TTP Thoracic spine Muscle bulk / tone/ strength in the bilateral paraspinal muscles normal Vertebral body tender to palpation over Facet loading test positive TTP Lumbar spine: Motor bulk/ tone/ strength lower extremities , thigh and legs : 5/5 Deep tendon reflexes : Normal Knee Jerk. Normal Ankle Jerk . Vertebral body tenderness to palpation over Aguirre Test positive Lumbar Facet Loading Test positive over BL L4-L5, L5-S1 Straight Leg Raise: positive at 30 degrees right side/ left side Gaenslen's Test positive Sacral spine : Severe tenderness over the Sacroiliac joint: right side / left side Range of motion: Flexion of the lumbar spine <60 degrees Range of motion: Extension of the lumbar spine <20 degrees Gaenslen's Test positive right side / left side Alban test: positive right side / left side Thigh Thrust Test positive right side / left side Sacral Thrust Test positive right side / left side Assessment and plan: Chronic LBP secondary to lumbar DDD, spondylosis with facet arthropathy without myelopathy Recommendation of BL facet block of the medial branches L4-L5, L5-S1 #2. May need a series of injections, up until RFA, for optimal pain relief. Risks, benefits of procedure discussed and pt verbalized understanding. Protocol for discontinuation/ continuation of medications surrounding procedure discussed. All questions answered. I have spent less than 30 minutes on patient care today. Dr Fink was available by phone for the evaluation of this patient. The time was used to review the medical records including relevant urine studies and Prescription history (MAPs), review of the available imaging, evaluation and examination of the patient, coordination of care with the medical staff and if applicable referring physicians, as well as creation of the medical record PQRS Narrative: Smoking Status Former smoker Hx Alcohol Use (MH) No Home Medications: Ambulatory Orders Aspirin EC [Ecotrin Low Dose] 81 mg PO HS 06/07/14 Rosuvastatin Calcium [Crestor] 40 mg PO HS 06/07/14 metFORMIN HCL [Glucophage] 500 mg PO BID 06/07/14 Albuterol Sulfate [Proair Hfa] 1 - 2 puff INHALATION RT-Q4H PRN 04/02/16 lisinopriL [Zestril] 10 mg PO HS 04/02/16 Cholecalciferol [Vitamin D3 (25 Mcg = 1000 Iu)] 1,000 unit PO DAILY 12/27/19 Escitalopram [Lexapro] 10 mg PO BID 12/27/19 Multivitamins, Thera [Multivitamin (formulary)] 1 tab PO DAILY 12/27/19 Omeprazole [PriLOSEC] 20 mg PO AC-BID #60 cap 12/28/19 Fluticasone Propion/Salmeterol [Advair 250-50 Diskus] 1 inhalation PO BID 09/11/21 Ibuprofen 600 mg PO DAILY 10/24/22 Controlled Substance Measures - Controlled Substance Measures Is patient prescribed a controlled substance at discharge?: No
== END ==
LOC: PNWHC3 13:55
PROVIDERS: ATTEND Specialist
DX: M51.37 Other intervertebral disc degeneration, lumbosacral region (principal); M47.817 Spondylosis without myelopathy or radiculopathy, lumbosacral region; G89.29 Other chronic pain; Z79.82 Long term (current) use of aspirin; Z87.891 Personal history of nicotine dependence; Z88.0 Allergy status to penicillin
CPT/HCPCS: 99211

== ENCOUNTER → 2023-04-08 | Outpatient (CLI) | payer MEDICARE ==
[2023-04-08 14:07] VITALS: BP 117/72; PULSE 76; RESP 15; TEMP 98.7
--- NOTE | 2023-04-08 14:07 | P.PAINPG ---
Objective - Vital Signs Vital signs: Intake & Output 04/07/23 04/08/23 04/08/23 18:59 06:59 18:59 Weight 74.843 kg PQRS Measure Charge Sheet Comment: A 72 yr old male with a history of severe and chronic LBP secondary to lumbar DDD and spondylosis with facet arthropathy without myelopathy presents today for evaluation s/p BL MBB L4-L5, L5-S1 #2. Pt states he experienced 80% pain relief x 12 hrs s/p procedure. Pain level is provoked at 6/10 in intensity, int ermittent, localized in the lumbar spine, dull in character w shooting pain to the buttocks. Pain is provoked by standing/ walking for periods of 15 min or more. Pain is relieved by PT x 6 wks which ended in Aug 2022, injections, lifting, walking/ standing for periods of 30 min or more. Oswestry axial pain score of 19. Interventional pain procedures completed include BL MBB L3-L5 x2 Patient denies any side effects of the medication(s), denies excessive drowsiness or sleepiness, denies suicidal ideation and reports that the current pain medication is helping to control the pain and improve activities of daily living. Patient denies any motor or sensory deficits. Patient denies any fever or night sweats, denies any change in the bowel movements or urination. Physical Examination: -Constitutional: Cooperative. Not in acute distress . - Neurologic: Cranial nerve II to XII intact. No focal neurological deficits. - Psychatric: Alert & oriented x 3. Matching mood & appropriate affect. Judg ment and insight intact. - Musculoskeletal: Cervical spine: Muscle bulk/ tone/ strength in the bilateral upper extremities normal Vertebral body tenderness to palpation over Spurling test positive Distraction test positive Facet loading test positive TTP Thoracic spine Muscle bulk / tone/ strength in the bilateral paraspinal muscles normal Vertebral body tender to palpation over Facet loading test positive TTP Lumbar spine: Motor bulk/ tone/ strength lower extremities , thigh and legs : 5/5 Deep tendon reflexes : Normal Knee Jerk. Normal Ankle Jerk . Vertebral body tenderness to palpation over Aguirre Test positive Lumbar Facet Loading Test positive over BL L4-L5, L5-S1 Straight Leg Raise: positive at 30 degrees right side/ left side Gaenslen's Test positive Sacral spine : Severe tenderness over the Sacroiliac joint: right side / left side Range of motion: Flexion of the lumbar spine <60 degrees Range of motion: Extension of the lumbar spine <20 degrees Gaenslen's Test positive right side / left side Alban test: positive right side / left side Thigh Thrust Test positive right side / left side Sacral Thrust Test positive right side / left side Assessment and plan: Chronic LBP secondary to lumbar DDD, spondylosis with facet arthropathy without myelopathy Recommendation of BL RFA L4-L5, L5-S1. Pt exhibited optimal pain relief w prior MBB procedures. Risks, benefits of procedure discussed and pt verbalized understanding. Protocol for discontinuation/ continuation of medications surrounding procedure discussed. All questions answered. I have spent less than 30 minutes on patient care today. Dr Fink was available by phone for the evaluation of this patient. The time was used to review the medical records including relevant urine studies and Prescription history (MAPs), review of the available imaging, evaluation and examination of the patient, coordination of care with the medical staff and if applicable referring physicians, as well as creation of the medical record PQRS Narrative: Smoking Status Former smoker Hx Alcohol Use (MH) No Home Medications: Ambulatory Orders Aspirin EC [Ecotrin Low Dose] 81 mg PO HS 06/07/14 Rosuvastatin Calcium [Crestor] 40 mg PO HS 06/07/14 metFORMIN HCL [Glucophage] 500 mg PO BID 06/07/14 Albuterol Sulfate [Proair Hfa] 1 - 2 puff INHALATION RT-Q4H PRN 04/02/16 lisinopriL [Zestril] 10 mg PO HS 04/02/16 Cholecalciferol [Vitamin D3 (25 Mcg = 1000 Iu)] 1,000 unit PO DAILY 12/27/19 Escitalopram [Lexapro] 10 mg PO BID 12/27/19 Multivitamins, Thera [Multivitamin (formulary)] 1 tab PO DAILY 12/27/19 Omeprazole [PriLOSEC] 20 mg PO AC-BID #60 cap 12/28/19 Fluticasone Propion/Salmeterol [Advair 250-50 Diskus] 1 inhalation PO BID 09/11/21 Ibuprofen 600 mg PO DAILY 10/24/22 Controlled Substance Measures - Controlled Substance Measures Is patient prescribed a controlled substance at discharge?: No
== END ==
LOC: PNWHC3 13:24
PROVIDERS: ATTEND Specialist
DX: M51.37 Other intervertebral disc degeneration, lumbosacral region (principal); M47.817 Spondylosis without myelopathy or radiculopathy, lumbosacral region; E11.9 Type 2 diabetes mellitus without complications; G89.29 Other chronic pain; Z79.01 Long term (current) use of anticoagulants; Z79.84 Long term (current) use of oral hypoglycemic drugs; Z87.891 Personal history of nicotine dependence; Z79.82 Long term (current) use of aspirin; Z88.0 Allergy status to penicillin
CPT/HCPCS: 99211

== ENCOUNTER → 2023-04-26 | Outpatient (CLI) | payer MEDICARE ==
[2023-04-26 13:01] LABS: African American GFR (CKD) >90 (>60 ml/min/1.73 sqM); Blood Urea Nitrogen 16 mg/dL (9-20); Non-African American GFR(CKD) 78 (>60 ml/min/1.73 sqM)
--- NOTE | 2023-04-26 19:24 | CT ---
EXAMINATION TYPE: CT angio chest DATE OF EXAM: 04/26/2023 COMPARISON: 12/27/2019 HISTORY: 72-year-old male I77.810, Aneurysm of ascending aorta TECHNIQUE: Contiguous axial scanning of the chest performed without and with IV Contrast, patient inj ected with 100 mL of Isovue 370. Coronal/sagittal MIP reconstructions performed. 3-D reconstructions generated on a dedicated workstation. CT DLP: 468.30 mGycm Automated exposure control for dose reduction was used. FINDINGS: The heart is normal size with small anterior pericardial effusion measuring up to 1.1 cm thick fairly similar to prior exam. LAD and RCA coronary calcifications are present. Mild aneurysm aortic root at 4.3 cm, unchanged. Mild aneurysm ascending aorta up to 4.3 cm, unchanged. Bovine configuration to the aortic arch. Similar ectatic upper descending thoracic aorta 3.5 cm. Ectatic mid descending thoracic aorta at 2.8 cm, unchanged. Similar borderline ectatic lower descending thoracic aorta at 2.6 cm. No thoracic lymphadenopathy by CT size criteria. There is moderate to advanced centrilobular and paraseptal emphysema present. Mild to moderate diffus e bronchial wall thickening. Some minimal strandy atelectasis/scarring at the inferior lingula. 4 mm lateral left lower lobe pulmonary nodule, axial image 116 is unchanged. No consolidation or pleu ral effusion. Visualized upper abdomen shows similar low-density thickening of the left greater than right adrenal glands measuring up to 2.0 cm on the left. Moderate stool burden noted. Calcified granulomas in the s pleen. Bones: No osseous destructive process. IMPRESSION: 1. ANEURYSMAL AORTIC ROOT AND ASCENDING AORTA AT 4.3 CM REMAINS UNCHANGED. ECTATIC DESCENDING THORACI C AORTA ABOVE IS ALSO SIMILAR. 2. COPD WITH MODERATE TO ADVANCED EMPHYSEMA. 3. REDEMONSTRATED BILATERAL LIPID RICH ADRENAL ADENOMAS.
== END | disposition home or self-care (01) ==
LOC: RADCTMAIN 12:09
PROVIDERS: ATTEND Internal Medicine Cardiovascular Disease
DX: I71.40 Abdominal aortic aneurysm, without rupture, unspecified (principal); I71.21 Aneurysm of the ascending aorta, without rupture; J43.2 Centrilobular emphysema
CPT/HCPCS: 82565; 84520; 71275; 36415; Q9967

== ENCOUNTER 2023-05-03 09:23 | Day surgery (SDC) | payer MEDICARE ==
[2023-05-03 09:48] LABS: Glucose,Whole Blood 138 mg/dL (70-110)
[2023-05-03] MEDS ORDERED: LACTATED RINGERS 1,000 ML IV ONE (09:48)
[2023-05-03 10:01] VITALS: RESP 16; TEMP 97.7
[2023-05-03] MEDS ORDERED: LACTATED RINGERS 1,000 ML IV SCH (10:15)
[2023-05-03] MEDS ORDERED: fentaNYL (PF) 50 MCG/ML 2 ML AMP ONE (10:18)
[2023-05-03] MEDS ORDERED: ROPIVACAINE 5MG/ML 20ML VIAL ONE (10:18)
[2023-05-03] MEDS ORDERED: MIDAZOLAM 2 MG/2 ML VIAL ONE (10:18)
[2023-05-03] MEDS ORDERED: IV FLUID CONTINUATION 800 ML IV ONE (11:01)
--- NOTE | 2023-05-03 11:04 | FL ---
EXAMINATION TYPE: FL guided pain mgmt statistic DATE OF EXAM: 05/03/2023 HISTORY: Fluoroscopy time Total dose area product (DAP) in uGy*m?, mGy*cm? (or similar): 0.18533 IMPRESSION: 1. Fluoroscopy time.
--- NOTE | 2023-05-03 11:05 | P.PCN ---
Date of Procedure: 05/03/23 Description of Procedure: PREOPERATIVE DIAGNOSIS: 1-Lumbar Spondylosis with Facet Arthropathy without myelopathy. 2- Lumber degenerative disc disease. POSTOPERATIVE DIAGNOSIS: 1- Lumbar Spondylosis with Facet Arthropathy without myelopathy. 2- Lumber degenerative disc disease. PROCEDURES : Bilateral Radiofrequency thermocoagulation, L3 , L4 , and L5 medial branch, with fluoroscopic guidance (fluoroscopy images available in the radiology department) ( to denervate the facet joint at bilateral L4-5 ,and L5-S1 levels ). ANESTHESIA: Monitored anesthesia care as per anesthesia department . EBL: Minimal PROCEDURE INDICATION: The patient with low back pain secondary to lumbar facet arthropathy who had more than 50% relief of her pain with previous diagnostic lumbar medial branch block with bupivacaine. PROCEDURE DESCRIPTION / TECHNIQUE: The patient was seen and identified in the preoperative area. Risks, benefits, complications, including but not limited to risk of infection ,bleeding , allergic reactions to the medications and no complete pain releife , and alternatives were discussed with the patient, the patient agreed to proceed with the procedure and signed the consent. IV was started. Vital signs remained stable throughout the procedure. Patient was taken to the OR and time out was completed. The patient was placed in the prone position on the procedure table. The lumber area was prepped and draped in the usual sterile fashion. . Vital signs were closely monitored during the procedure .IV sedation was used during the procedure to decrease patients anxiety. Using AP and then oblique fluoroscopy, the ``eye of the Randall dog co rresponding to the connection between the superior and transverse articular processes of right L4, and L5 vertebrae and the junction point between superior articular process with right ala of the sacrum were identified, marked, and localized with 1% lidocaine. Subsequently, a 18 [id number] radiofrequency cannula with a 10-mm active tip was advanced guided by fluoroscopy to each of the``eyes of the Randall dog at right L4, and L5 vertebrae and junction of superior articular process with the right ala of the sacrum. Each site then underwent sensory testing at 50 Hz and 0 to 1 volt and motor testing at 2.5 Hz and 0 to 3 volt with local stimulation, but no radicular symptoms down the legs. Thereafter each sites underwent radiofrequency thermocoagulation at 80 degrees celsius for 90 seconds after injecting 1 ml of PF Ropivacaine 0.5%, The same procedure was repeated at the same levels on the left side. RF needles were taken out after the procedure. At the end of the procedure, the skin was cleansed and bandages were applied. COMPLICATIONS: No acute complications. DISPOSITION / PLANS: The patient was placed in a supine position and transferred to the recovery area in a stable condition for observation and was discharged from the recovery room after meeting discharge criteria. Home discharge instructions given to the patient by the staff. The patient was reexamined prior to discharge. The patient will schedule a follow up in the clinic in 2-4 weeks.
[2023-05-03 11:16] VITALS: BP 114/81; PULSE 58
== END 2023-05-03 11:32 | disposition home or self-care (01) ==
LOC: ORPAIN 09:23
PROVIDERS: ATTEND Pain Medicine Interventional Pain Medicine
DX: M51.36 Other intervertebral disc degeneration, lumbar region (principal); M47.816 Spondylosis without myelopathy or radiculopathy, lumbar region; I10 Essential (primary) hypertension; I25.10 Atherosclerotic heart disease of native coronary artery without angina pectoris; E78.5 Hyperlipidemia, unspecified; J45.909 Unspecified asthma, uncomplicated; J44.9 Chronic obstructive pulmonary disease, unspecified; E11.9 Type 2 diabetes mellitus without complications; M19.90 Unspecified osteoarthritis, unspecified site; K21.9 Gastro-esophageal reflux disease without esophagitis; F12.90 Cannabis use, unspecified, uncomplicated; Z79.84 Long term (current) use of oral hypoglycemic drugs; Z88.0 Allergy status to penicillin; Z79.51 Long term (current) use of inhaled steroids; Z79.899 Other long term (current) drug therapy
CPT/HCPCS: 64635; 64636 ×2; J2250; J2001; J3010; J2795

== ENCOUNTER → 2023-05-13 | Outpatient (CLI) | payer MEDICARE ==
--- NOTE | 2023-05-13 12:11 | BD ---
EXAMINATION TYPE: Axial Bone Density DATE OF EXAM: 05/13/2023 CLINICAL HISTORY: 72 years old Male. ICD-10 CODE: M81.0 AGE RELATED OSTEOPOROSIS Height: 63.7 Weight: 150 FRAX RISK QUESTIONS: Family History (Parent hip fracture): yes, no fx Glucocorticoids (More than 3mos): yes (Ex: prednisone, prednisolone, methylprednisolone, dexamethasone, and hydrocortisone). History of Fracture in Adulthood: yes Current Tobacco Use: quit 1996 RISK FACTORS HISTORY OF: hx of thoracic spine fractures as an adult Surgery to Spine L4 and L5 surgical hardware inserted as an adult Family History of Osteoporosis: yes, mother Lost more than 2 inches in height since high school: ht in school 5'7", yes Hyperparathyroidism: no Adrenal Insufficiency: no MEDICATIONS: Prednisone or other steroids: yes, inhalers and steroids for lung, emphysema and copd. for many yrs Additional Medications: vit d, magnesium, senior multivitamin, bp meds, Lexapro, metformin, reflux me ds, statin for cholesterol, Additional History: copd, emphysema, anxiety, diabetic, reflux, cholesterol, EXAM MEASUREMENTS: Bone mineral densitometry was performed using the [employer] System. Surgical repair lumbar spine with surgical hardware, back not scanned. Bone mineral density about the R hip (g/cm2): 0.892 Bone mineral density about the L hip (g/cm2): 0.928 T Score values are as follows: -----R Neck: -1.4 -----L Neck: -1.4 -----R Total: -0.9 -----L Total: -0.6 Z Score values are as follows: -----R Neck: -0.2 -----L Neck: -0.2 -----R Total: -0.5 -----L Total: -0.2 Bone mineral density is a baseline study today. Bone mineral density about the L Wrist (g/cm2): 0.639 T Score values are as follows: -----Dist. R+U: -0.9 -----Prox. R+U: -0.3 -----Radius total: -1.2 Z Score values are as follows: -----Dist. R+U: 0.0 -----Prox. R+U: 0.5 -----Radius total: -0.3 Bone mineral density is a baseline study for him today. FRAX%s: The graph provided illustrates a 17.0% chance for a major osteoporotic fx and a 4.9% chance f or the hips probability for fx in 10 years time. IMPRESSION: Osteopenia (T Score between -2.5 and -1). There is slightly increased risk of fracture and the patient may be considered for treatment. Re-Screen 2-5 years. NOTE: T-SCORE=SD OF THE YOUNG ADULT MEAN.
== END | disposition home or self-care (01) ==
LOC: RADBDWWP 11:05
PROVIDERS: ATTEND Internal Medicine
DX: M81.0 Age-related osteoporosis without current pathological fracture (principal); M85.89 Other specified disorders of bone density and structure, multiple sites
CPT/HCPCS: 77080

== ENCOUNTER → 2023-06-06 | Outpatient (CLI) | payer MEDICARE ==
[2023-06-06 13:53] VITALS: BP 108/75; PULSE 76; RESP 16; TEMP 98.3
--- NOTE | 2023-06-06 15:11 | P.PAINPG ---
PQRS Measure Charge Sheet Comment: A 72 yr old male with a history of severe and chronic LBP secondary to lumbar DDD and spondylosis with facet arthropathy without myelopathy presents today for evaluation s/p BL RFA L4-L5, L5-S1. Pt states he experienced 90% pain relief s/p procedure. Pain level is provoked at 1/10 in intensity, intermittent, localized in the lumbar spine, predominantly axial, dull in character w occasional shooting pain to the buttocks. Pain is provoked by standing/ walking for periods of 15 min or more. Pain is relieved by PT x 6 wks which ended in Aug 2022, injections, lifting, walking/ standing for periods of 30 min or more. Oswestry axial pain score of 14. Interventional pain procedures completed include BL RFA L3-L5 Patient denies any side effects of the medication(s), denies excessive drowsiness or sleepiness, denies suicidal ideation and reports that the current pain medication is helping to control the pain and improve activities of daily living. Patient denies any motor or sensory deficits. Patient denies any fever or night sweats, denies any change in the bowel movements or urination. Physical Examination: -Constitutional: Cooperative. Not in acute distress . - Neurologic: Cranial nerve II to XII intact. No focal neurological deficits. - Psychatric: Alert & oriented x 3. Matching mood & appropriate affect. Judgment and insight intact. - Musculoskeletal: Cervical spine: Muscle bulk/ tone/ strength in the bilateral upper extremities normal Vertebral body tenderness to palpation over Spurling test positive Distraction test positive Facet loading test positive TTP Thoracic spine Muscle bulk / tone/ strength in the bilateral paraspinal muscles normal Vertebral body tender to palpation over Facet loading test positive TTP Lumbar spine: Motor bulk/ tone/ strength lower extremities , thigh and legs : 5/5 Deep tendon reflexes : Normal Knee Jerk. Normal Ankle Jerk . Vertebral body tenderness to palpation over Aguirre Test positive Lumbar Facet Loading Test positive over BL L4-L5, L5-S1 Straight Leg Raise: positive at 30 degrees right side/ left side Gaenslen's Test positive Sacral spine : Severe tenderness over the Sacroiliac joint: right side / left side Range of motion: Flexion of the lumbar spine <60 degrees Range of motion: Extension of the lumbar spine <20 degrees Gaenslen's Test positive right side / left side Alban test: positive right side / left side Thigh Thrust Test positive right side / left side Sacral Thrust Test positive right side / left side Assessment and plan: Chronic LBP secondary to lumbar DDD, spondylosis with facet arthropathy without myelopathy Will manage residual pain and may RTC on an as needed basis. All questions answered. I have spent less than 30 minutes on patient care today. Dr Fink was available by phone for the evaluation of this patient. The time was used to review the medical records including relevant urine studies and Prescription history (MAPs), review of the available imaging, evaluation and examination of the patient, coordination of care with the medical staff and if applicable referring physicians, as well as creation of the medical record PQRS Narrative: Smoking Status Former smoker Hx Alcohol Use (MH) No Home Medications: Ambulatory Orders Aspirin EC [Ecotrin Low Dose] 81 mg PO HS 06/07/14 Rosuvastatin Calcium [Crestor] 40 mg PO HS 06/07/14 metFORMIN HCL [Glucophage] 500 mg PO BID 06/07/14 Albuterol Sulfate [Proair Hfa] 1 - 2 puff INHALATION RT-Q4H PRN 04/02/16 lisinopriL [Zestril] 10 mg PO HS 04/02/16 Cholecalciferol [Vitamin D3 (25 Mcg = 1000 Iu)] 1,000 unit PO DAILY 12/27/19 Escitalopram [Lexapro] 10 mg PO BID 12/27/19 Multivitamins, Thera [Multivitamin (formulary)] 1 tab PO DAILY 12/27/19 Omeprazole [PriLOSEC] 20 mg PO AC-BID #60 cap 12/28/19 Fluticasone Propion/Salmeterol [Advair 250-50 Diskus] 1 inhalation PO BID 09/11/21 Ibuprofen 600 mg PO BID PRN 10/24/22 busPIRone HCL 10 mg PO DAILY PRN 05/01/23 Controlled Substance Measures - Controlled Substance Measures Is patient prescribed a controlled substance at discharge?: No
== END ==
LOC: PNWHC3 13:25
PROVIDERS: ATTEND Anesthesiology
DX: M47.817 Spondylosis without myelopathy or radiculopathy, lumbosacral region (principal); M51.37 Other intervertebral disc degeneration, lumbosacral region
CPT/HCPCS: 99211

== ENCOUNTER 2023-10-02 09:44 | Day surgery (SDC) | payer MEDICARE ==
[2023-10-02 10:22] LABS: Glucose,Whole Blood 136 mg/dL (70-110)
[2023-10-02] MEDS: LACTATED RINGERS 1,000 ML IV SCH (10:23)
[2023-10-02] MEDS ORDERED: LIDOCAINE 1% INJ 10MG/ML (20 ML MDV) ONE (10:32)
[2023-10-02] MEDS ORDERED: PROPOFOL 10 MG/ML 20 ML VIAL IV ONE (10:32)
--- NOTE | 2023-10-02 10:41 | P.PCN ---
Date of Procedure: 10/02/23 Procedure(s) Performed: BRIEF HISTORY: Patient is a 72-year-old, pleasant, White male scheduled for an upper endoscopy as a part of evaluation of epigastric pain and intermittent nausea for the last few months duration. He is currentlyon Prilosec 20 mg daily and symptoms are gradually improving.. PROCEDURE PERFORMED: Esophagogastroduodenoscopy With biopsy. PREOPERATIVE DIAGNOSIS: Chronic epigastric pain/GERD/nausea. IV sedation per anesthesia. PROCEDURE: After informed consent was obtained, the patient was brought into the endoscopy unit. IV sedation was administered by Anesthesia under continuous monitoring. Initially the Olympus GIF-140 video endoscope was inserted into the mouth. Esophagus intubated without any difficulty. It was gradually advanced into the stomach and duodenum and carefully examined. The bulb and the second part of the duodenum appeared normal. The scope at this time was withdrawn to the stomach, adequately insufflated with air, and upon careful examination, mucosa of the antrum,Mild gastritis and biopsies were done from this area. Mucosa of the body, cardia and the fundus appeared normal. The scope was then withdrawn into the esophagus. Small hiatal hernia noted.The GE junction was located at 39 cm from the incisors. The esophagus appeared normal. Biopsies were done from the distal esophagus.There were no erosions or ulcerations seen and the patient tolerated the procedure well. IMPRESSION: 1. Mild antral gastritis. 2. Small hiatal hernia but no evidence of esophagitisOf Coats's esophagus. RECOMMENDATIONS: The findings of this examination were discussed with the patient As well as his family. He was advised to follow with the biopsy results.Continue with omeprazole 20 mg daily and follow antireflux measures.
[2023-10-02 10:54] VITALS: BP 90/60; PULSE 78; RESP 16; TEMP 97.2
== END 2023-10-02 11:18 | disposition home or self-care (01) ==
LOC: ORWHC2ENDO 09:44
PROVIDERS: ATTEND Internal Medicine Gastroenterology
DX: K44.9 Diaphragmatic hernia without obstruction or gangrene (principal); G89.29 Other chronic pain; K21.9 Gastro-esophageal reflux disease without esophagitis; I25.10 Atherosclerotic heart disease of native coronary artery without angina pectoris; I10 Essential (primary) hypertension; E78.5 Hyperlipidemia, unspecified; J44.89 Other specified chronic obstructive pulmonary disease; E11.9 Type 2 diabetes mellitus without complications; M19.90 Unspecified osteoarthritis, unspecified site; F41.9 Anxiety disorder, unspecified; F32.A Depression, unspecified; F12.90 Cannabis use, unspecified, uncomplicated; Z95.5 Presence of coronary angioplasty implant and graft; Z87.891 Personal history of nicotine dependence; Z79.51 Long term (current) use of inhaled steroids; Z79.84 Long term (current) use of oral hypoglycemic drugs; Z79.899 Other long term (current) drug therapy
CPT/HCPCS: 88305; 43239; J2001; J2704

== ENCOUNTER → 2024-06-01 | Outpatient (CLI) | payer MEDICARE ==
[2024-06-01 12:25] VITALS: BP 118/76; PULSE 76; RESP 16; TEMP 97.5
--- NOTE | 2024-06-01 15:21 | P.PAINPG ---
PQRS Measure Charge Sheet Comment: A 72 yr old male with a history of severe and chronic LBP secondary to radiculopathy, spondylosis with facet arthropathy without myelopathy presents today for evaluation. Pt underwent a BL RFA L4-L5/ L5-S1 in Apr 2023 and states he experienced 90% pain relief x 1 yr s/p procedure. Pain level is provoked at 6 /10 in intensity, predominantly axial, constant, localized in the lumbar spine, predominantly axial, dull in character without shooting pain. Pain is provoked by standing/ walking for periods of 15 min or more. Pain is relieved by PT x 6 wks which ended in Aug 2022, injections, lifting, walking/ standing for periods of 30 min or more. Interventional pain procedures completed include BL RFA L3-L5 (Apr 2023) Patient denies any side effects of the medication(s), denies excessive drowsiness or sleepiness, denies suicidal ideation and reports that the current pain medication is helping to control the pain and improve activities of daily living. Patient denies any motor or sensory deficits. Patient denies any fever or night sweats, denies any change in the bowel movements or urination. Physical Examination: -Constitutional: Cooperative. Not in acute distress . - Neurologic: Cranial nerve II to XII intact. No focal neurological deficits. - Psychatric: Alert & oriented x 3. Matching mood & appropriate affect. Judgment and insight intact. - Musculoskeletal: Cervical spine: Muscle bulk/ tone/ strength in the bilateral upper extremities normal Vertebral body tenderness to palpation over Spurling test positive Distraction test positive Facet loading test positive TTP Thoracic spine Muscle bulk / tone/ strength in the bilateral paraspinal muscles normal Vertebral body tender to palpation over Facet loading test positive TTP Lumbar spine: Motor bulk/ tone/ strength lower extremities , thigh and legs : 5/5 Deep tendon reflexes : Normal Knee Jerk. Normal Ankle Jerk . Vertebral body tenderness to palpation over Aguirre Test positive Lumbar Facet Loading Test positive over BL L4-L5, L5-S1 Straight Leg Raise: positive at 30 degrees right side/ left side Gaenslen's Test positive Sacral spine : Severe tenderness over the Sacroiliac joint: right side / left side Range of motion: Flexion of the lumbar spine <60 degrees Range of motion: Extension of the lumbar spine <20 degrees Gaenslen's Test positive right side / left side Alban test: positive right side / left side Thigh Thrust Test positive right side / left side Sacral Thrust Test positive right side / left side Assessment and plan: Chronic LBP secondary to radiculopathy, spondylosis with facet arthropathy without myelopathy Recommendation of BL RFA L4-L5, L5-S1. Pt exhibited optimal pain relief w prior BL RFA lumbar spine. Risks, benefits of procedure discussed and pt verbalized understanding. Protocol for discontinuation/ continuation of medications [place] procedure discussed. Minimal anesthesia including Fentanyl and Versed if clinically indicated. All questions answered. I have spent less than 30 minutes on patient care today. Dr Fink was available by phone for the evaluation of this patient. The time was used to review the medical records including relevant urine studies and Prescription history (MAPs), review of the available imaging, evaluation and examination of the patient, coordination of care with the medical staff and if applicable referring physicians, as well as creation of the medical record PQRS Narrative: Smoking Status Former smoker Hx Alcohol Use (MH) No Home Medications: Ambulatory Orders Aspirin EC [Ecotrin Low Dose] 81 mg PO HS 06/07/14 Rosuvastatin Calcium [Crestor] 40 mg PO HS 06/07/14 metFORMIN HCL [Glucophage] 500 mg PO BID 06/07/14 Albuterol Sulfate [Proair Hfa] 1 - 2 puff INHALATION RT-Q4H PRN 04/02/16 lisinopriL [Zestril] 10 mg PO HS 04/02/16 Cholecalciferol [Vitamin D3 (25 Mcg = 1000 Iu)] 1,000 unit PO DAILY 12/27/19 Escitalopram [Lexapro] 10 mg PO BID 12/27/19 Multivitamins, Thera [Multivitamin (formulary)] 1 tab PO DAILY 12/27/19 Omeprazole [PriLOSEC] 20 mg PO AC-BID #60 cap 12/28/19 Fluticasone Propion/Salmeterol [Advair 250-50 Diskus] 1 inhalation PO BID 09/11/21 Ibuprofen 600 mg PO BID PRN 10/24/22 busPIRone HCL 10 mg PO DAILY PRN 05/01/23 Controlled Substance Measures - Controlled Substance Measures Is patient prescribed a controlled substance at discharge?: No
== END ==
LOC: PNWHC3 12:00
PROVIDERS: ATTEND Specialist
DX: M47.26 Other spondylosis with radiculopathy, lumbar region (principal); M48.061 Spinal stenosis, lumbar region without neurogenic claudication; Z87.891 Personal history of nicotine dependence; Z88.0 Allergy status to penicillin
CPT/HCPCS: 99211

== ENCOUNTER 2024-06-26 07:53 | Day surgery (SDC) | payer MEDICARE ==
[2024-06-26 08:23] VITALS: TEMP 97
[2024-06-26] MEDS: IV FLUID CONTINUATION 1,000 ML IV ONE (08:54)
[2024-06-26] MEDS: LACTATED RINGERS 1,000 ML IV SCH (08:55)
[2024-06-26 09:07] LABS: Glucose,Whole Blood 132 mg/dL (70-110)
[2024-06-26] MEDS ORDERED: fentaNYL (PF) 50 MCG/ML 2 ML AMP ONE (09:20)
[2024-06-26] MEDS ORDERED: ONDANSETRON 4 MG/2 ML VIAL ONE (09:20)
[2024-06-26] MEDS ORDERED: MIDAZOLAM 2 MG/2 ML VIAL ONE (09:20)
[2024-06-26] MEDS ORDERED: methylPREDNISolone ACETATE 40 MG/ML 1 ML VIAL ONE (09:20)
[2024-06-26] MEDS ORDERED: ROPIVACAINE 5MG/ML 20ML VIAL ONE (09:20)
[2024-06-26] MEDS: IV FLUID CONTINUATION 600 ML IV ONE (09:50)
[2024-06-26 09:59] VITALS: RESP 18
--- NOTE | 2024-06-26 10:15 | P.PCN ---
Date of Procedure: 06/26/24 Procedure(s) Performed: PREOPERATIVE DIAGNOSIS: 1-Lumbar Spondylosis with Facet Arthropathy without myelopathy. 2- Lumber degenerative disc disease. POSTOPERATIVE DIAGNOSIS: 1- Lumbar Spondylosis with Facet Arthropathy without myelopathy. 2- Lumber degenerative disc disease. PROCEDURES : Bilateral Radiofrequency thermocoagulation, L3 , L4 , and L5 medial branch, with fluoroscopic guidance (fluoroscopy images available in the radiology department) ( to denervate the facet joint at bilateral L4-5 ,and L5-S1 levels ). ANESTHESIA: Moderate sedation with Versed 2 mg and fentanyl 100 mcg,(sedation was started at 09:20, ended at 09:42 )) EBL: Minimal PROCEDURE INDICATION: The patient with low back pain secondary to lumbar facet arthropathy who had more than 50% relief of her pain with previous diagnostic lumbar medial branch block with bupivacaine. PROCEDURE DESCRIPTION / TECHNIQUE: The patient was seen and identified in the preoperative area. Risks, benefits, complications, including but not limited to risk of infection ,bleeding , allergic reactions to the medications and no complete pain releife , and alternatives were discussed with the patient, the patient agreed to proceed with the procedure and signed the consent. IV was started. Vital signs remained stable throughout the procedure. Patient was taken to the OR and time out was completed. The patient was placed in the prone position on the procedure table. The lumber area was prepped and draped in the usual sterile fashion. . Vital signs were closely monitored during the procedure .IV sedation was used during the procedure to decrease patients anxiety. Using AP and then oblique fluoroscopy, the ``eye of the Randall dog corresponding to the connection between the superior and transverse articular processes of right L3, L4, and L5 were identified, marked, and localized with 1% lidocaine. Subsequently, a 18 guage (VENOM )100-mm radiofrequency cannula with a 10-mm active tip was advanced guided by fluoroscopy to each of the``eyes of the Randall dog at right L3, L4, and L5. Each site then underwent sensory testing at 50 Hz and 0 to 1 volt and motor testing at 2.5 Hz and 0 to 3 volt with local stimulation, but no radicular symptoms down the legs. Thereafter each sites underwent radiofrequency thermocoagulation at 80 degrees celsius for 90 seconds after injecting 0.5 ml of PF Ropivacaine 1ml, then after the thermocoagulation done , 1 ml of the block solution containing Depo-Medrol 20 mg and 3 ml of Ropivacaine 0.5% was injected at the right L3 , L4 , and L5 , levels after negative aspiration of CSF and blood and with no paresthesias. Cannulas were retracted while injecting lidocaine 1% until the needle is out. The same procedure was repeated at the level of Left L3, L4, and L5 levels. At the end of the procedure, the skin was cleansed and bandages were applied. COMPLICATIONS: No acute complications. DISPOSITION / PLANS: The patient was placed in a supine position and transferred to the recovery area in a stable condition for observation and was discharged from the recovery room after meeting discharge criteria. Home discharge instructions given to the patient by the staff. The patient was reexamined prior to discharge. The patient will schedule a follow up in the clinic in 2-4 weeks.
[2024-06-26 10:17] VITALS: BP 108/71; PULSE 68
--- NOTE | 2024-06-26 11:07 | FL ---
EXAMINATION TYPE: FL guided pain mgmt statistic DATE OF EXAM: 06/26/2024 FLUOROSCOPY RF TRIP LUMBAR DAP [id number] FL 27.8 6 images are submitted. [facility], , 06/26/2024 11:04 AM
== END 2024-06-26 10:21 | disposition home or self-care (01) ==
LOC: ORPAIN 07:53
PROVIDERS: ATTEND Specialist
DX: M47.816 Spondylosis without myelopathy or radiculopathy, lumbar region (principal); M51.369 Other intervertebral disc degeneration, lumbar region without mention of lumbar back pain or lower extremity pain; E11.9 Type 2 diabetes mellitus without complications; Z79.82 Long term (current) use of aspirin; Z79.84 Long term (current) use of oral hypoglycemic drugs; Z79.1 Long term (current) use of non-steroidal anti-inflammatories (NSAID); Z88.0 Allergy status to penicillin
CPT/HCPCS: 64635; 64636 ×2; 99152; 99153; J2250; J2405; J3010; J2795; J1010